=== PATIENT | female | born 1990 | race Caucasian/White ===

== ENCOUNTER 2017-07-26 04:00 | Inpatient (IN) | payer BC ==
[~2017-07-26 04:00] MED LIST: SODIUM CHLORIDE 0.9% 50 ML 25 ML IV PRN
[2017-07-26] MEDS: LACTATED RINGERS 1,000 ML IV SCH ×4 (04:15→19:21)
[2017-07-26] MEDS ORDERED: CITRIC ACID/SODIUM CITRATE SOL PO SCH (05:00)
[2017-07-26] MEDS ORDERED: PHENYLEPHRINE HYDROCHLORIDE 10 MG/ML SOL ONE (05:20)
[2017-07-26] MEDS ORDERED: OXYTOCIN 10000 MU/ML SOL ONE (05:20)
[2017-07-26] MEDS ORDERED: CEFAZOLIN SODIUM 1 GM PDS ONE ×2 (05:20→13:11)
[2017-07-26] MEDS ORDERED: ONDANSETRON HCL 4 MG/2 ML SOL ONE (05:20)
[2017-07-26] MEDS ORDERED: FENTANYL 100MCG/2ML SOL ONE (05:38)
[2017-07-26] MEDS: CEFAZOLIN (PREMIX) 1 GM 1 GM/50 ML SOL IV SCH ×2 (06:00→13:17)
[2017-07-26] MEDS ORDERED: LACTATED RINGERS 1,000 ML with OXYTOCIN 10000 MU/ML 20 MU IV ONE ×2 (06:08)
[2017-07-26] MEDS ORDERED: GLYCOPYRROLATE 0.2 MG/ML SOL ONE (06:41)
[2017-07-26] MEDS ORDERED: BUPIVACAINE HCL 0.5% MPF 10 ML SOL ONE (07:02)
[2017-07-26] MEDS ORDERED: BENZOCAINE/MENTHOL 1 SPR TOP PRN (07:25)
[2017-07-26] MEDS ORDERED: WITCH HAZEL 1 EA PAD TOP PRN (07:25)
[2017-07-26] MEDS ORDERED: BISACODYL 10 MG SUP PR PRN (07:25)
[2017-07-26] MEDS ORDERED: FLEET ENEMA PR PRN (07:25)
[2017-07-26] MEDS ORDERED: TEMAZEPAM 15MG 15 MG CAP PO PRN (07:25)
[2017-07-26] MEDS ORDERED: METHYLERGONOVINE MALEATE 0.2 MG TAB PO PRN (07:25)
[2017-07-26 07:27] LABS: APPEARANCE,URINE Clear; BILIRUBIN,URINE NEGATIVE (NEGATIVE); COLOR,URINE Yellow; GLUCOSE, URINE (UA) NEGATIVE (NEGATIVE); KETONES,URINE NEGATIVE (NEGATIVE); LEUKOCYTE ESTERASE ,URINE TRACE (NEGATIVE); NITRATE,URINE NEGATIVE (NEGATIVE); OCCULT BLOOD,URINE NEGATIVE (NEG-TRACE); UROBILINOGEN,URINE 0.2 (0.2-1.0 EU)
[2017-07-26] MEDS ORDERED: [UNRECOGNIZED DRUG - OTHER] IV ONE ×3 (07:32→08:00)
[2017-07-26 07:54] LABS: RBC,URINE 0-1 (0-3AV/HPF)
[2017-07-26 08:24] LABS: POTASSIUM 4.2 mMol/L (3.5-5.1)
[2017-07-26 08:43] LABS: BASOPHILS % (AUTO) 1 % (0-3); EOSINOPHILS % (AUTO) 1 % (0-9); HEMATOCRIT 31 % (35-47); MEAN CORPUSCULAR HGB CONC 39.4 gm/dl (32.0-36.0); MEAN CORPUSCULAR VOLUME 90 fL (81-99); MONOCYTES % (AUTO) 6.2 % (0-12); NEUTROPHILS % (AUTO) 74.6 % (37-80)
[2017-07-26 09:41] LABS: ALBUMIN 1.6 gm/dl (3.4-5.0)
[2017-07-26] MEDS ORDERED: KETOROLAC TROMETHAMINE 30 MG/ML SOL ONE (10:13)
[2017-07-26] MEDS: DOCUSATE SODIUM 100 MG SGL PO SCH ×2 (13:25→20:44)
[2017-07-26] MEDS: APAP/HYDROCODONE 325/5 TAB PO PRN ×2 (14:05→20:44)
[2017-07-26 15:55] LABS: ALBUMIN 1.8 gm/dl (3.4-5.0); CALCIUM 7.5 mg/dl (8.5-10.1); POTASSIUM 3.6 mMol/L (3.5-5.1)
[2017-07-26] MEDS: IBUPROFEN 600 MG TAB PO PRN (17:44)
[2017-07-27] MEDS: IBUPROFEN 600 MG TAB PO PRN ×3 (01:38→20:46)
[2017-07-27] MEDS: LACTATED RINGERS 1,000 ML IV SCH ×2 (02:14→07:55)
[2017-07-27] MEDS: APAP/HYDROCODONE 325/5 TAB PO PRN ×3 (07:00→20:48)
[2017-07-27] MEDS: DOCUSATE SODIUM 100 MG SGL PO SCH ×2 (08:02→20:48)
[2017-07-27] MEDS: SODIUM CHLORIDE 0.9% FLUSH 10 ML SOL IV SCH ×2 (14:42→20:46)
[2017-07-28] MEDS: IBUPROFEN 600 MG TAB PO PRN ×2 (02:49→12:38)
[2017-07-28] MEDS: SODIUM CHLORIDE 0.9% FLUSH 10 ML SOL IV SCH ×3 (02:50→15:37)
[2017-07-28] MEDS: APAP/HYDROCODONE 325/5 TAB PO PRN ×2 (09:17→17:54)
[2017-07-28] MEDS: DOCUSATE SODIUM 100 MG SGL PO SCH ×2 (09:17→21:25)
[2017-07-28 18:08] VITALS: RESP 18
[2017-07-28 21:38] VITALS: PULSE 90; TEMP 98; O2SAT 96
[2017-07-29] MEDS: IBUPROFEN 600 MG TAB PO PRN ×2 (00:10→08:29)
[2017-07-29] MEDS: APAP/HYDROCODONE 325/5 TAB PO PRN ×2 (00:10→06:10)
[2017-07-29] MEDS: DOCUSATE SODIUM 100 MG SGL PO SCH (08:29)
[2017-07-29 11:09] VITALS: BP 123/80
== END 2017-07-29 11:10 | disposition home or self-care (01) | DRG 540 ==
LOC: OB 04:00 → INTOOBSV 04:00 → UNDOADMOB 04:00 → OBSVTOIN 04:00 → UNDODISIN 07-29 11:10
PROVIDERS: ADMIT Emergency Medicine; ATTEND Emergency Medicine
PROC: 10D00Z1 Extraction of Products of Conception, Low, Open Approach (ICD-10-PCS; principal; 2017-07-26 05:30)
DX: O36.63X0 Maternal care for excessive fetal growth, third trimester, not applicable or unspecified (principal); Z37.0 Single live birth; Z3A.39 39 weeks gestation of pregnancy
CPT/HCPCS: 36415; 59025; 80053; 81001; 85018; 85025; 87088; 99070; J0690; J1885; J2405; J2590; J3010; J7643